=== PATIENT | female | born 1955 | race African-American/Black ===

== ENCOUNTER 2017-04-26 20:00 | Inpatient (IN) | payer MEDICARE, MEDICAID ==
[~2017-04-26] VITALS: Ht 157.5 cm; Wt 95.7 kg
[2017-04-26 20:00] VITALS: BP 159/85
[2017-04-26] MEDS ORDERED: LACTULOSE 20G/30ML UDC PO PRN (21:00)
[2017-04-26] MEDS ORDERED: ENOXAPARIN 30MG/0.3ML SYR SUBCUT NR (21:00)
[2017-04-26] MEDS ORDERED: PANTOPRAZOLE 40MG DR TABLET PO NR (21:00)
[2017-04-26] MEDS ORDERED: ACETAMINOPHEN 325MG TABLET PO PRN (21:00)
[2017-04-26] MEDS ORDERED: IPRATROPIUM/ALBUTEROL 0.5-3(2.5)MG/3ML NEB HHN PRN (21:00)
[2017-04-26] MEDS ORDERED: DIPHENHYDRAMINE 50MG CAPSULE PO PRN (21:15)
[2017-04-26] MEDS ORDERED: LORAZEPAM 0.5MG TABLET PO PRN (21:15)
[2017-04-26 21:22] LABS: CREATINE KINASE MB FRACTION < 0.5 ng/mL (0.5-3.6); TROPONIN I < 0.02 ng/mL (0.00-0.04)
[2017-04-26 21:31] LABS: EOSINOPHILS % 9.5 % (0.0-5.0); HEMATOCRIT. 34.4 % (36.0-48.0); HEMOGLOBIN. 11.4 g/dL (12.0-16.0); LYMPHOCYTES % 20.9 % (20.0-50.0); MEAN CORPUSCULAR HEMOGLOBIN 29.2 pg (28.0-32.0); MEAN CORPUSCULAR VOLUME 88.1 fL (81.0-99.0); MEAN PLATELET VOLUME 8.2 fl (7.4-10.4); MONOCYTES % 11.2 % (2.0-8.0); NEUTROPHILS % 57.4 % (40.0-76.0); PLATELET 217 x1000/uL (130-400); RED CELL DISTRIBUTION WIDTH 14.7 % (11.6-14.6)
[2017-04-26 21:34] LABS: INR 1.1; PROTHROMBIN TIME 11.4 sec (9.4-11.6)
[2017-04-26] MEDS: HYDROMORPHONE HCL/PF 2MG/ML CPJ IV PRN (21:52)
[2017-04-26 22:27] VITALS: BP 131/80
[2017-04-26 23:00] VITALS: BP 131/80
[2017-04-27] VITALS (12 sets, daily range): BP systolic 103–154; BP diastolic 63–90
[2017-04-27] MEDS: IPRATROPIUM/ALBUTEROL 0.5-3(2.5)MG/3ML NEB HHN SCH ×6 (00:31→19:50)
[2017-04-27 06:15] LABS: BASOPHILS % 0.5 % (0.0-2.0); EOSINOPHILS % 7.7 % (0.0-5.0); HEMATOCRIT. 33.1 % (36.0-48.0); HEMOGLOBIN. 11.3 g/dL (12.0-16.0); LYMPHOCYTES % 21.4 % (20.0-50.0); MEAN CORPUSCULAR HEMOGLOBIN 29.9 pg (28.0-32.0); MEAN PLATELET VOLUME 7.9 fl (7.4-10.4); MONOCYTES % 11.1 % (2.0-8.0); NEUTROPHILS % 59.3 % (40.0-76.0); PLATELET 196 x1000/uL (130-400); RED BLOOD CELL COUNT 3.76 mill/uL (4.2-5.4); RED CELL DISTRIBUTION WIDTH 14.8 % (11.6-14.6)
[2017-04-27] MEDS: HYDROMORPHONE HCL/PF 2MG/ML CPJ IV PRN ×3 (06:46→20:06)
[2017-04-27] MEDS: DIPHENHYDRAMINE 50MG/ML VIAL IV PRN ×3 (06:46→20:06)
[2017-04-27 07:33] LABS: CARBON DIOXIDE 29 mEq/L (21-32); CHLORIDE 99 mEq/L (98-107); CREATINE KINASE MB FRACTION 0.6 ng/mL (0.5-3.6); HDL CHOLESTEROL 57 mg/dL (40-59); LDL CHOLESTEROL 78 mg/dL (5-100); TROPONIN I < 0.02 ng/mL (0.00-0.04)
[2017-04-27] MEDS: DOCUSATE SODIUM 250MG CAPSULE PO SCH (08:46)
[2017-04-27] MEDS: ASPIRIN 325MG EC TABLET PO SCH (08:46)
[2017-04-27] MEDS: CINACALCET HCL 30MG TABLET PO SCH (08:46)
[2017-04-27] MEDS: PANTOPRAZOLE 40MG DR TABLET PO SCH (08:46)
[2017-04-27] MEDS: ENOXAPARIN 30MG/0.3ML SYR SUBCUT SCH (08:47)
[2017-04-27 08:50] LABS: BG BASE EXCESS 0.1 mmol/L (-2.0-2.0); BG CARBOXYHEMOGLOBIN 0.3 % (0.5-1.5); BG DEOXYHEMOGLOBIN 4.2 % (0.0-5.0); BG FRACTION INSPIRED OXYGEN 21; BG HCO3 ACT 23.8 mmol/L (22.0-26.0); BG METHEMOGLOBIN 0.2 % (0.0-1.5); BG OXYGEN SATURATION 95.8 % (92.0-98.5); BG OXYHEMOGLOBIN 95.3 % (94.0-97.0); BG PCO2 35.5 mmHg (35.0-45.0); BG PH 7.444 (7.350-7.450); BG PO2 82.6 mmHg (75.0-100.0); BG SAMPLE SITE RIGHT RADIAL; BG VENT MODE ROOM AIR
[2017-04-27] MEDS: LORAZEPAM 2MG/ML CPJ IV PRN ×2 (14:01→23:58)
[2017-04-28] VITALS (12 sets, daily range): BP systolic 87–123; BP diastolic 52–76
[2017-04-28] MEDS: IPRATROPIUM/ALBUTEROL 0.5-3(2.5)MG/3ML NEB HHN SCH ×6 (00:05→20:59)
[2017-04-28] MEDS: DIPHENHYDRAMINE 50MG/ML VIAL IV PRN ×2 (04:03→10:12)
[2017-04-28] MEDS: HYDROMORPHONE HCL/PF 2MG/ML CPJ IV PRN ×2 (04:04→10:13)
[2017-04-28 06:31] LABS: BASOPHILS % 0.8 % (0.0-2.0); HEMATOCRIT. 30.1 % (36.0-48.0); HEMOGLOBIN. 10.2 g/dL (12.0-16.0); LYMPHOCYTES % 18.4 % (20.0-50.0); MEAN CORPUSCULAR HEMOGLOBIN 29.9 pg (28.0-32.0); MEAN CORPUSCULAR VOLUME 88.6 fL (81.0-99.0); MEAN PLATELET VOLUME 8.2 fl (7.4-10.4); MONOCYTES % 14.7 % (2.0-8.0); NEUTROPHILS % 59.1 % (40.0-76.0); PLATELET 187 x1000/uL (130-400); RED CELL DISTRIBUTION WIDTH 14.8 % (11.6-14.6)
[2017-04-28 07:03] LABS: PHOSPHORUS 7.7 mg/dL (2.5-4.9)
[2017-04-28] MEDS: CINACALCET HCL 30MG TABLET PO SCH (09:34)
[2017-04-28] MEDS: PANTOPRAZOLE 40MG DR TABLET PO SCH (09:34)
[2017-04-28] MEDS: DOCUSATE SODIUM 250MG CAPSULE PO SCH (09:34)
[2017-04-28] MEDS: ASPIRIN 325MG EC TABLET PO SCH (09:34)
[2017-04-28] MEDS: ENOXAPARIN 30MG/0.3ML SYR SUBCUT SCH (09:35)
[2017-04-28] MEDS ORDERED: LACTULOSE 20G/30ML UDC PO PRN (09:45)
[2017-04-28] MEDS ORDERED: LORAZEPAM 2MG/ML CPJ IV PRN (11:30)
[2017-04-28] MEDS ORDERED: HYDROMORPHONE HCL/PF 2MG/ML CPJ IV PRN (11:45)
[2017-04-28] MEDS ORDERED: DIPHENHYDRAMINE 25MG CAPSULE PO PRN (13:00)
[2017-04-28] MEDS: HYDROMORPHONE HCL/PF 2MG/ML CPJ IM PRN ×3 (14:09→23:01)
[2017-04-28] MEDS: PREGABALIN 50 MG CAPSULE PO SCH ×2 (14:30→20:26)
[2017-04-28] MEDS: DIPHENHYDRAMINE 50MG CAPSULE PO PRN ×2 (15:36→21:39)
[2017-04-28] MEDS ORDERED: LORAZEPAM 2MG/ML CPJ IM PRN (15:56)
[2017-04-29] VITALS (11 sets, daily range): BP systolic 105–158; BP diastolic 49–81
[2017-04-29] MEDS: IPRATROPIUM/ALBUTEROL 0.5-3(2.5)MG/3ML NEB HHN SCH ×5 (00:16→21:14)
[2017-04-29] MEDS: DIPHENHYDRAMINE 50MG CAPSULE PO PRN ×2 (04:43→09:36)
[2017-04-29] MEDS: HYDROMORPHONE HCL/PF 2MG/ML CPJ IM PRN ×3 (04:46→15:10)
[2017-04-29] MEDS: PANTOPRAZOLE 40MG DR TABLET PO SCH (06:13)
[2017-04-29 07:27] LABS: BASOPHILS % 1.2 % (0.0-2.0); EOSINOPHILS % 8.5 % (0.0-5.0); HEMOGLOBIN. 10.1 g/dL (12.0-16.0); LYMPHOCYTES % 17.9 % (20.0-50.0); MEAN CORPUSCULAR HEMOGLOBIN 29.8 pg (28.0-32.0); MEAN CORPUSCULAR VOLUME 88.8 fL (81.0-99.0); MEAN PLATELET VOLUME 8.2 fl (7.4-10.4); MONOCYTES % 13.8 % (2.0-8.0); NEUTROPHILS % 58.6 % (40.0-76.0); PLATELET 188 x1000/uL (130-400); RED BLOOD CELL COUNT 3.37 mill/uL (4.2-5.4); RED CELL DISTRIBUTION WIDTH 15.4 % (11.6-14.6)
[2017-04-29] MEDS: PREGABALIN 50 MG CAPSULE PO SCH (08:52)
[2017-04-29] MEDS: ASPIRIN 325MG EC TABLET PO SCH (08:52)
[2017-04-29] MEDS: CINACALCET HCL 30MG TABLET PO SCH (08:52)
[2017-04-29] MEDS: DOCUSATE SODIUM 250MG CAPSULE PO SCH (08:52)
[2017-04-29] MEDS: ENOXAPARIN 30MG/0.3ML SYR SUBCUT SCH (08:53)
[2017-04-29] MEDS ORDERED: METHYLPREDNISOLONE SOD SUCC 125 MG/2 ML VIAL IV SCH (11:00)
[2017-04-29 11:07] LABS: BG BASE EXCESS -1.1 mmol/L (-2.0-2.0); BG CARBOXYHEMOGLOBIN 0.2 % (0.5-1.5); BG DEOXYHEMOGLOBIN 2.6 % (0.0-5.0); BG FRACTION INSPIRED OXYGEN 28; BG HCO3 ACT 23.3 mmol/L (22.0-26.0); BG METHEMOGLOBIN 0.3 % (0.0-1.5); BG OXYGEN SATURATION 97.4 % (92.0-98.5); BG OXYHEMOGLOBIN 96.9 % (94.0-97.0); BG PCO2 37.9 mmHg (35.0-45.0); BG PH 7.407 (7.350-7.450); BG PO2 96.6 mmHg (75.0-100.0); BG SAMPLE SITE LEFT BRACHIAL; BG TOTAL HEMOGLOBIN 11.1 g/dL (12.0-18.0); BG VENT MODE MASK - TRACH
[2017-04-29] MEDS ORDERED: IPRATROPIUM/ALBUTEROL 0.5-3(2.5)MG/3ML NEB HHN ONE (12:00)
[2017-04-29] MEDS ORDERED: LIDOCAINE HCL 1% 20ML VIAL (Pyxis) INJ ONE (13:12)
[2017-04-29] MEDS ORDERED: SODIUM BICARBONATE 4% (2.4MEQ) 5ML VIAL IV ONE (13:12)
[2017-04-29] MEDS: SEVELAMER CARBONATE 800 MG TABLET PO SCH (17:52)
[2017-04-29] MEDS: DIPHENHYDRAMINE 50MG/ML VIAL IV PRN (17:52)
[2017-04-29] MEDS ORDERED: LACTULOSE 20G/30ML UDC PO NR ×2 (18:00→20:00)
[2017-04-29] MEDS: PREGABALIN 75MG CAPSULE PO SCH (21:00)
[2017-04-29] MEDS: ACETYLCYSTEINE 100MG/ML 10% VIAL 4ML INH SCH (21:14)
[2017-04-29] MEDS: HYDROMORPHONE HCL/PF 2MG/ML CPJ IV PRN (21:19)
[2017-04-30] VITALS (9 sets, daily range): BP systolic 110–150; BP diastolic 60–80
[2017-04-30] MEDS: IPRATROPIUM/ALBUTEROL 0.5-3(2.5)MG/3ML NEB HHN SCH ×4 (00:31→12:41)
[2017-04-30] MEDS: ACETYLCYSTEINE 100MG/ML 10% VIAL 4ML INH SCH ×4 (00:32→12:41)
[2017-04-30] MEDS: DIPHENHYDRAMINE 50MG/ML VIAL IV PRN ×3 (01:17→14:24)
[2017-04-30] MEDS: HYDROMORPHONE HCL/PF 2MG/ML CPJ IV PRN ×3 (03:10→12:52)
[2017-04-30] MEDS: PREGABALIN 75MG CAPSULE PO SCH (03:52)
[2017-04-30] MEDS: PANTOPRAZOLE 40MG DR TABLET PO SCH (06:47)
[2017-04-30 07:44] LABS: HEMATOCRIT. 33.4 % (36.0-48.0); HEMOGLOBIN. 11.1 g/dL (12.0-16.0); MEAN CORPUSCULAR HEMOGLOBIN 29.2 pg (28.0-32.0); MEAN CORPUSCULAR VOLUME 87.7 fL (81.0-99.0); MEAN PLATELET VOLUME 8.2 fl (7.4-10.4); PLATELET 213 x1000/uL (130-400)
[2017-04-30 07:47] LABS: PHOSPHORUS 3.5 mg/dL (2.5-4.9)
[2017-04-30 08:40] LABS: PLATELET ESTIMATE NORMAL
[2017-04-30] MEDS: DOCUSATE SODIUM 250MG CAPSULE PO SCH (08:40)
[2017-04-30] MEDS: CINACALCET HCL 30MG TABLET PO SCH (08:40)
[2017-04-30] MEDS: ASPIRIN 325MG EC TABLET PO SCH (08:40)
[2017-04-30] MEDS: SEVELAMER CARBONATE 800 MG TABLET PO SCH ×2 (08:51→13:23)
[2017-04-30] MEDS ORDERED: CALCITRIOL 0.25MCG CAPSULE PO SCH (09:00)
[2017-04-30] MEDS ORDERED: HYDROCODONE/ACETAMINOPHEN 5/325MG TABLET PO PRN ×2 (09:45)
[2017-04-30] MEDS ORDERED: NA PHOS,M-B/NA PHOS,DI-BA ENEMA 118ML PR SCH (10:00)
[2017-04-30] MEDS ORDERED: SORBITOL 70% SOLN 30ML PO SCH (10:00)
== END 2017-04-30 15:25 | disposition home or self-care (01) | DRG 73 ==
LOC: 7WST 20:00 → 5EST 22:15
PROVIDERS: ADMIT Internal Medicine Geriatric Medicine; ATTEND Internal Medicine Geriatric Medicine
PROC: 02HV33Z Insertion of Infusion Device into Superior Vena Cava, Percutaneous Approach (ICD-10-PCS; principal; 2017-04-30)
DX: G51.0 Bell's palsy (principal); J96.20 Acute and chronic respiratory failure, unspecified whether with hypoxia or hypercapnia; E44.0 Moderate protein-calorie malnutrition; Z93.0 Tracheostomy status; N18.6 End stage renal disease; Z99.81 Dependence on supplemental oxygen; I13.11 Hypertensive heart and chronic kidney disease without heart failure, with stage 5 chronic kidney disease, or end stage renal disease; J44.1 Chronic obstructive pulmonary disease with (acute) exacerbation; E87.5 Hyperkalemia; D63.1 Anemia in chronic kidney disease; F41.1 Generalized anxiety disorder; G89.4 Chronic pain syndrome; I51.7 Cardiomegaly; K21.9 Gastro-esophageal reflux disease without esophagitis; K59.09 Other constipation; M48.02 Spinal stenosis, cervical region; M54.12 Radiculopathy, cervical region; M54.16 Radiculopathy, lumbar region; E89.0 Postprocedural hypothyroidism; G47.33 Obstructive sleep apnea (adult) (pediatric); J45.909 Unspecified asthma, uncomplicated; Z22.322 Carrier or suspected carrier of Methicillin resistant Staphylococcus aureus; Z88.8 Allergy status to other drugs, medicaments and biological substances; Z90.710 Acquired absence of both cervix and uterus; Z99.2 Dependence on renal dialysis; Z79.899 Other long term (current) drug therapy; Z68.38 Body mass index [BMI] 38.0-38.9, adult
CPT/HCPCS: 36415; 36569; 36600; 70450; 70551; 71010; 72141; 72148; 74000; 76937; 80048; 80053; 80061; 82375; 82553; 82805; 83735; 84100; 84443; 84484; 85025; 85610; 92610; 93306; 93880; 94640; 94664; J1170; J1200; J1650; J2060; J2930; J3490; J7030; J7608; J7620; Q0163

== ENCOUNTER 2017-05-24 22:38 | Inpatient (IN) | payer MEDICARE, MEDICAID ==
[~2017-05-24] VITALS: Ht 157.5 cm; Wt 96.7 kg
[2017-05-24] MEDS ORDERED: ONDANSETRON HCL 4MG/2ML VIAL IV STA (23:17)
[2017-05-24] MEDS ORDERED: ALBUTEROL (0.083%) 2.5MG/3ML NEB HHN STA (23:17)
[2017-05-24] MEDS ORDERED: IPRATROPIUM BROMIDE (0.02%) 0.5MG/2.5ML NEB HHN STA (23:17)
[2017-05-24] MEDS ORDERED: ALBUTEROL (0.5%) 2.5MG/0.5ML NEB HHN ONE (23:36)
[2017-05-24] MEDS ORDERED: IPRATROPIUM/ALBUTEROL 0.5-3(2.5)MG/3ML NEB ONE (23:36)
[2017-05-24] MEDS ORDERED: DIPHENHYDRAMINE 50MG/ML VIAL IV ONE (23:45)
[2017-05-25] VITALS (10 sets, daily range): BP systolic 91–142; BP diastolic 52–82
[2017-05-25 00:06] LABS: BASOPHILS % 0.7 % (0.0-2.0); EOSINOPHILS % 14.8 % (0.0-5.0); HEMATOCRIT. 33.5 % (36.0-48.0); HEMOGLOBIN. 11.4 g/dL (12.0-16.0); LYMPHOCYTES % 19.5 % (20.0-50.0); MEAN CORPUSCULAR HEMOGLOBIN 30.3 pg (28.0-32.0); MEAN CORPUSCULAR VOLUME 88.7 fL (81.0-99.0); MEAN PLATELET VOLUME 8.1 fl (7.4-10.4); MONOCYTES % 11.8 % (2.0-8.0); NEUTROPHILS % 53.2 % (40.0-76.0); PLATELET 207 x1000/uL (130-400); RED BLOOD CELL COUNT 3.78 mill/uL (4.2-5.4); RED CELL DISTRIBUTION WIDTH 16.1 % (11.6-14.6)
[2017-05-25 00:23] LABS: CARBON DIOXIDE 23 mEq/L (21-32); CHLORIDE 102 mEq/L (98-107); TROPONIN I < 0.02 ng/mL (0.00-0.04)
[2017-05-25] MEDS ORDERED: KETOROLAC 30MG/ML VIAL IV ONE (02:45)
[2017-05-25] MEDS ORDERED: IPRATROPIUM/ALBUTEROL 0.5-3(2.5)MG/3ML NEB HHN PRN (06:45)
[2017-05-25] MEDS ORDERED: ACETAMINOPHEN 325MG TABLET PO PRN (06:45)
[2017-05-25] MEDS ORDERED: FUROSEMIDE 40MG/4ML VIAL IVP SCH (06:45)
[2017-05-25] MEDS ORDERED: MORPHINE SULFATE 4 MG/ML CPJ (NOT FOR IM USE) IV PRN (06:45)
[2017-05-25] MEDS ORDERED: DIPHENHYDRAMINE 50MG/ML VIAL IV PRN (06:45)
[2017-05-25] MEDS: OMEPRAZOLE 20MG CAPSULE EXTENDED RELEASE PO SCH (07:14)
[2017-05-25] MEDS ORDERED: NON FORMULARY PATIENT HOME MED EA XX SCH (07:45)
[2017-05-25] MEDS: HYDROMORPHONE HCL/PF 2MG/ML CPJ IV PRN ×3 (07:46→20:36)
[2017-05-25] MEDS ORDERED: IPRATROPIUM/ALBUTEROL 0.5-3(2.5)MG/3ML NEB HHN SCH (08:00)
[2017-05-25 08:03] LABS: CARBON DIOXIDE 24 mEq/L (21-32); CHLORIDE 103 mEq/L (98-107); HEMATOCRIT 33.5 % (36.0-48.0); HEMOGLOBIN 11.1 g/dL (12.0-16.0); MEAN CORPUSCULAR HEMOGLOBIN 29.9 pg (28.0-32.0); PLATELET 188 x1000/uL (130-400); RED BLOOD CELL COUNT 3.72 mill/uL (4.2-5.4)
[2017-05-25] MEDS ORDERED: SODIUM POLYSTYRENE SULFONATE 15 G/60 ML BOT PO SCH (09:00)
[2017-05-25] MEDS ORDERED: ENOXAPARIN 30MG/0.3ML SYR SUBCUT SCH (09:00)
[2017-05-25] MEDS: ENOXAPARIN 40MG/0.4ML SYR SUBCUT SCH (09:06)
[2017-05-25 11:40] LABS: PHOSPHORUS 8.5 mg/dL (2.5-4.9)
[2017-05-25] MEDS: SEVELAMER CARBONATE 800 MG TABLET PO SCH ×2 (12:49→18:15)
[2017-05-25] MEDS: FOLIC ACID/VITAMIN B COMP W-C TABLET PO SCH (12:49)
[2017-05-25] MEDS ORDERED: DIPHENHYDRAMINE 50MG/ML VIAL IV NR (14:15)
[2017-05-25] MEDS: IPRATROPIUM BROMIDE (0.02%) 0.5MG/2.5ML NEB HHN SCH ×2 (15:48→20:50)
[2017-05-25] MEDS: DIPHENHYDRAMINE 50MG/ML VIAL IV PRN (19:00)
[2017-05-25] MEDS: ARFORMOTEROL TARTRATE 15MCG/2ML NEB NEB SCH (21:05)
[2017-05-25] MEDS ORDERED: ZOLPIDEM TARTRATE 5MG TABLET PO PRN (21:45)
[2017-05-26] VITALS (14 sets, daily range): BP systolic 93–150; BP diastolic 53–95
[2017-05-26] MEDS: IPRATROPIUM BROMIDE (0.02%) 0.5MG/2.5ML NEB HHN SCH ×6 (01:08→12:00)
[2017-05-26] MEDS: HYDROMORPHONE HCL/PF 2MG/ML CPJ IV PRN ×2 (03:01→09:43)
[2017-05-26] MEDS: DIPHENHYDRAMINE 50MG/ML VIAL IV PRN ×2 (03:01→23:15)
[2017-05-26] MEDS: OMEPRAZOLE 20MG CAPSULE EXTENDED RELEASE PO SCH (06:31)
[2017-05-26 06:35] LABS: HEMATOCRIT. 31.7 % (36.0-48.0); HEMOGLOBIN. 10.7 g/dL (12.0-16.0); MEAN CORPUSCULAR HEMOGLOBIN 30.4 pg (28.0-32.0); MEAN CORPUSCULAR VOLUME 90.1 fL (81.0-99.0); MEAN PLATELET VOLUME 8.3 fl (7.4-10.4); PLATELET 188 x1000/uL (130-400); RED BLOOD CELL COUNT 3.52 mill/uL (4.2-5.4); RED CELL DISTRIBUTION WIDTH 15.8 % (11.6-14.6)
[2017-05-26] MEDS: ENOXAPARIN 40MG/0.4ML SYR SUBCUT SCH (07:44)
[2017-05-26] MEDS: FOLIC ACID/VITAMIN B COMP W-C TABLET PO SCH (07:44)
[2017-05-26] MEDS: FUROSEMIDE 40MG/4ML VIAL IVP SCH (07:44)
[2017-05-26] MEDS: SEVELAMER CARBONATE 800 MG TABLET PO SCH ×3 (07:44→17:44)
[2017-05-26] MEDS: ARFORMOTEROL TARTRATE 15MCG/2ML NEB NEB SCH (09:05)
[2017-05-26] MEDS ORDERED: SORBITOL 70% SOLN 30ML PO NR (09:15)
[2017-05-26] MEDS ORDERED: NA PHOS,M-B/NA PHOS,DI-BA ENEMA 118ML PR PRN (09:15)
[2017-05-26] MEDS ORDERED: DIPHENHYDRAMINE 50MG/ML VIAL IV NR (10:30)
[2017-05-26] MEDS: LIDOCAINE 5% PATCH TOP SCH (15:59)
[2017-05-26] MEDS ORDERED: DIPHENHYDRAMINE 50MG CAPSULE PO PRN (17:00)
[2017-05-26] MEDS: HYDROMORPHONE HCL/PF 2MG/ML CPJ IM PRN (17:56)
[2017-05-26 18:00] LABS: PLATELET ESTIMATE NORMAL
[2017-05-26] MEDS ORDERED: EPOETIN ALFA 10000UNITS/ML VIAL SUBCUT SCH (21:00)
[2017-05-27 00:01] VITALS: BP 108/69
[2017-05-27] MEDS: HYDROMORPHONE HCL/PF 2MG/ML CPJ IV PRN (00:02)
[2017-05-27 00:04] VITALS: BP 108/69
[2017-05-27] MEDS: IPRATROPIUM BROMIDE (0.02%) 0.5MG/2.5ML NEB HHN SCH ×2 (01:10→08:22)
[2017-05-27 04:00] VITALS: BP_SYST 160; BP_SYST 161; BP_DIAS 60; BP_DIAS 61
[2017-05-27] MEDS: OMEPRAZOLE 20MG CAPSULE EXTENDED RELEASE PO SCH (06:26)
[2017-05-27 07:06] LABS: BASOPHILS % 0.9 % (0.0-2.0); EOSINOPHILS % 14.2 % (0.0-5.0); HEMATOCRIT. 31.1 % (36.0-48.0); HEMOGLOBIN. 10.4 g/dL (12.0-16.0); LYMPHOCYTES % 15.9 % (20.0-50.0); MEAN CORPUSCULAR HEMOGLOBIN 29.7 pg (28.0-32.0); MEAN PLATELET VOLUME 8.5 fl (7.4-10.4); MONOCYTES % 11.7 % (2.0-8.0); NEUTROPHILS % 57.3 % (40.0-76.0); PLATELET 182 x1000/uL (130-400); RED BLOOD CELL COUNT 3.49 mill/uL (4.2-5.4)
[2017-05-27] MEDS: FUROSEMIDE 40MG/4ML VIAL IVP SCH (08:05)
[2017-05-27] MEDS: FOLIC ACID/VITAMIN B COMP W-C TABLET PO SCH (08:05)
[2017-05-27] MEDS: SEVELAMER CARBONATE 800 MG TABLET PO SCH (08:05)
[2017-05-27] MEDS: ENOXAPARIN 40MG/0.4ML SYR SUBCUT SCH (08:06)
[2017-05-27] MEDS: HYDROMORPHONE HCL/PF 2MG/ML CPJ IM PRN (08:08)
[2017-05-27 08:47] VITALS: BP 121/68
[2017-05-27 08:51] VITALS: BP 121/68
[2017-05-27] MEDS: LIDOCAINE 5% PATCH TOP SCH (09:37)
== END 2017-05-27 10:35 | disposition home or self-care (01) | DRG 291 ==
LOC: ER 22:38 → 3WST 05-25 02:45 → EDBEDREQTM 05-25 02:53 → EDBEDREQ 05-25 02:53 → ENRESERV 05-25 04:03 → 8WST 05-26 20:17
PROVIDERS: ADMIT Internal Medicine Geriatric Medicine; ATTEND Internal Medicine Geriatric Medicine
PROC: 5A1D70Z Performance of Urinary Filtration, Intermittent, Less than 6 Hours Per Day (ICD-10-PCS; principal; 2017-05-26)
DX: I13.2 Hypertensive heart and chronic kidney disease with heart failure and with stage 5 chronic kidney disease, or end stage renal disease (principal); J96.00 Acute respiratory failure, unspecified whether with hypoxia or hypercapnia; Z93.0 Tracheostomy status; N25.81 Secondary hyperparathyroidism of renal origin; F11.20 Opioid dependence, uncomplicated; J44.0 Chronic obstructive pulmonary disease with (acute) lower respiratory infection; N18.6 End stage renal disease; I50.43 Acute on chronic combined systolic (congestive) and diastolic (congestive) heart failure; J44.1 Chronic obstructive pulmonary disease with (acute) exacerbation; D63.1 Anemia in chronic kidney disease; F32.9 Major depressive disorder, single episode, unspecified; F41.1 Generalized anxiety disorder; G47.33 Obstructive sleep apnea (adult) (pediatric); G89.4 Chronic pain syndrome; J20.9 Acute bronchitis, unspecified; K21.9 Gastro-esophageal reflux disease without esophagitis; K57.90 Diverticulosis of intestine, part unspecified, without perforation or abscess without bleeding; M19.90 Unspecified osteoarthritis, unspecified site; M48.00 Spinal stenosis, site unspecified; K59.00 Constipation, unspecified; G51.0 Bell's palsy; M46.87 Other specified inflammatory spondylopathies, lumbosacral region; M25.552 Pain in left hip; M51.36 Other intervertebral disc degeneration, lumbar region; Z86.73 Personal history of transient ischemic attack (TIA), and cerebral infarction without residual deficits; Z88.8 Allergy status to other drugs, medicaments and biological substances; Z88.5 Allergy status to narcotic agent; Z90.49 Acquired absence of other specified parts of digestive tract; Z90.710 Acquired absence of both cervix and uterus; Z99.2 Dependence on renal dialysis
CPT/HCPCS: 36415; 71010; 72110; 73502; 80048; 80053; 83605; 84100; 84443; 84484; 85025; 85027; 87040; 93005; 93306; 94640; 94664; 96374; 96375; 97162; 99291; C1893; J1170; J1200; J1650; J1885; J1940; J2405; J7030; J7611; J7620; Q0163